=== PATIENT | female | born 1950 | race Caucasian/White ===

== ENCOUNTER 2024-08-13 17:25 | Emergency (ER) | payer OTHER ==
[~2024-08-13] VITALS: Ht 149.9 cm; Wt 60.0 kg
[2024-08-13 17:34] LABS: COVID AG,FIA SOURCE NASAL SWAB
[2024-08-13 18:00] LABS: BASOPHILS % (AUTO) 1.5 % (0.0-2.0); EOSINOPHILS % (AUTO) 0.7 % (1.0-6.0); HEMATOCRIT 42.3 % (36-46); HEMOGLOBIN 14.9 g/dL (12.0-16.0); LYMPHOCYTES # (AUTO) 3.3 K/uL (1.0-4.8); LYMPHOCYTES % (AUTO) 40.5 % (22.0-44.0); MEAN CORPUSCULAR HEMOGLOBIN 30.7 pg (26.0-34.0); MEAN CORPUSCULAR HGB CONC 35.2 G/dL (31.0-37.0); MEAN CORPUSCULAR VOLUME 87 fL (80-100); MONOCYTES # (AUTO) 0.6 K/uL (0.1-1.0); MONOCYTES % (AUTO) 7.3 % (2.0-9.0); NEUTROPHILS # (AUTO) 4.1 K/uL (1.8-7.7); PLATELET COUNT (AUTO) 294 K/uL (150-450); RED BLOOD CELL COUNT(AUTO) 4.86 MIL/uL (4.00-5.20); RED CELL DISTRIBUTION WIDTH 13.4 % (11.5-14.5); WHITE BLOOD COUNT (AUTO) 8.2 K/uL (4.5-11.0)
[2024-08-13 18:11] LABS: SARS-COV2 (COVID) ANTIGEN,FIA Negative (Negative)
[2024-08-13 18:12] LABS: INFLUENZA TYPE A NEGATIVE FOR TYPE A (NEGATIVE); INFLUENZA TYPE B NEGATIVE FOR TYPE B (NEGATIVE)
[2024-08-13 18:14] LABS: ANION GAP 16 mmol/L (8-16); CALCIUM, TOTAL 9.6 mg/dL (8.8-10.5); CARBON DIOXIDE 21 mmol/L (22-29); CHLORIDE 93 mmol/L (98-107); CREATININE 0.88 mg/dL (0.60-1.30); GLOMERULAR FILTR. RATE CALC > 60 mL/min (>60); GLUCOSE,RANDOM 119 mg/dL (70-110); POTASSIUM 3.7 mmol/L (3.5-5.1); SODIUM SERUM 130 mmol/L (136-145); UREA NITROGEN, BLOOD 15 mg/dL (7-18)
[2024-08-13 18:16] LABS: LIPASE 36 U/L (16-77); TROPONIN I-HIGH SENSITIVITY 10 ng/L (<51)
[2024-08-13 18:19] LABS: ALBUMIN 4.1 g/dL (3.4-5.0); BILIRUBIN,DIRECT 0.2 mg/dL (0.00-0.20); BILIRUBIN,TOTAL 0.8 mg/dL (0.1-1.0); TOTAL PROTEIN, SERUM 7.5 g/dL (6.4-8.2)
[2024-08-13] MEDS ORDERED: SODIUM CHLORIDE 0.9% 100 ML ONE (18:51)
[2024-08-13] MEDS ORDERED: IOHEXOL 350 MG/ML 100 ML VIAL ONE (18:51)
[2024-08-13] MEDS ORDERED: 0.9% SODIUM CHLORIDE 10 ML SYRINGE IVP ONE (18:52)
[2024-08-13] MEDS: ONDANSETRON HCL 4 MG/2 ML VIAL IVP ONE (19:03)
[2024-08-13] MEDS: SODIUM CHLORIDE 0.9% 1,000 ML IV ONE (19:03)
[2024-08-13 21:02] LABS: APPEARANCE,URINE CLEAR (CLEAR); BILIRUBIN,URINE NEGATIVE (NEGATIVE); COLOR,URINE COLORLESS (YELLOW); GLUCOSE, URINE (UA) NEGATIVE (NEGATIVE); KETONES,URINE TRACE mg/dL (NEGATIVE); LEUKOCYTE ESTERASE ,URINE NEGATIVE (NEGATIVE); NITRATE,URINE NEGATIVE (NEGATIVE); OCCULT BLOOD,URINE NEGATIVE (NEGATIVE); PH,URINE 7.5 (5.0-8.0); PROTEIN,URINE NEGATIVE (NEGATIVE); SPECIFIC GRAVITIY, URINE 1.018 (1.003-1.030); UROBILINOGEN,URINE <=1.0 mg/dL (<=1.0)
[2024-08-13] MEDS: MORPHINE SULFATE 2 MG/ML SYRINGE IVP ONE (21:05)
[2024-08-13] MEDS: PB/HYOSCY/ATR/SCOP/LIDO/MAALOX 55 ML BOTTLE PO ONE (21:09)
[2024-08-13 22:59] VITALS: BP 159/75; PULSE 86; RESP 18; TEMP 98.4; O2SAT 98
[2024-08-13] MEDS ORDERED: OMEP-148 PO (23:01)
== END 2024-08-13 23:19 | disposition home or self-care (01) ==
LOC: EMS 17:40
DX: K80.20 Calculus of gallbladder without cholecystitis without obstruction (principal); I10 Essential (primary) hypertension; D17.71 Benign lipomatous neoplasm of kidney; Z20.822 Contact with and (suspected) exposure to COVID-19
CPT/HCPCS: 99285; 74177; 96374; 76700; 96361; 96375; 87426; 80048; 80076; 81003; 83690; 84484; 85025; 87804; 36415; 93005; Q9967; J2270; J2405; J7030; J7050